=== PATIENT | female | born 1945 | race Caucasian/White ===

== ENCOUNTER 2020-05-13 13:29 | Emergency (ER) | payer MEDICARE, BC, SELFPAY ==
[2020-05-13 13:43] VITALS: BP 103/78; PULSE 79; TEMP 36.6; O2SAT 96
--- NOTE | 2020-05-13 13:54 | ED.GENADUL_ITS ---
Discharge Plan Disposition Patient Disposition: HOME Condition: Stable Discharge Details Chief Complaint: Orthopedic Clinical Impression: Left leg swelling Primary Care Provider: Sharon Shaikh ED Provider: Ashwini Artis Home Meds and New Rx's Prescriptions: Continued atorvastatin 40 mg Tablet 40 mg PO DAILY RF: 0 metoprolol tartrate 100 mg Tablet 100 mg PO DAILY RF: 0 aspirin 81 mg Tablet,Chewable 81 mg PO DAILY RF: 0 diltiazem HCl 120 mg Capsule,Extended Release 24hr 120 mg PO DAILY RF: 0 Eliquis 5 mg Tablet 5 mg PO BID RF: 0 Discharge Instructions Instructions: Leg Edema (ED) Additional Instructions: Rest, ice, and elevate the affected area as much as possible. Wear the Reid wrap to help with swelling. Follow up with your primary care doctor in 1 week as needed. Return to the emergency department with any worsening or new concerning symptoms. Discharge Data Discharge Date/Time-TO BE ENTERED AT DEPARTURE: 05/13/20 15:56 Discharge Physician: Ashwini Artis Medical Decision Making 74-year-old female with a history of aortic stenosis and aortic valve replacement on Eliquis complicated by cardiac arrest and CVA in 2018 presents for complaint of shinsplints to both anterior legs for the past 2 years and left leg swelling and tingling for the past week status post mechanical fall. Denies any significant pain in her left leg status post fall. Patient referred here by PCP for possible x-rays and ultrasound to rule out DVT. She has mild edema noted to left ankle but no calf tenderness or bony deformity or evidence of infection or trauma to bilateral lower extremities. She is neurovascular intact. Patient referred for left tib-fib and ankle x-rays which were negative. She had bilateral Doppler ultrasound which were negative. Her vitals are within normal limits. She appears nontoxic and in no acute distress. An Reid wrap was placed to her left ankle. She was advised on the importance of rest, ice, elevate and compression. Advised to follow up with the primary care doctor for re-evaluation. Usual and customary return precautions given prior to discharge. Medical Records Medical records reviewed: Yes I reviewed the patient's medical records. Imaging Data Radiologic Study: Radiologist's impression: US EXTREMITY VENOUS BI CLINICAL HISTORY: r/o dvt. TECHNIQUE: Bilateral lower extremity venous ultrasound performed using grayscale, color-flow, and spectral Doppler analysis. COMPARISON: CR XR ANKLE LT COMPLETE from 05/13/2020 FINDINGS: The bilateral common femoral, femoral and popliteal veins demonstrate normal compressibility, augmentation, and color Doppler. The posterior tibial veins are patent. IMPRESSION: Right: Negative for DVT Left: Negative for DVT XR TIB/FIB LT/ANKLE LT CLINICAL HISTORY: s/p fall, r/o acute fracture. TECHNIQUE: 2D digital imaging was performed COMPARISON: CR XR ANKLE LT COMPLETE from 05/13/2020 FINDINGS: BONES: No acute fracture is present. No bony destructive lesion is seen. Visualized portion of knee is unremarkable. The ankle mortise appears intact. No talar dome defect is seen. There is a plantar calcaneal spur. SOFT TISSUE: Soft tissue swelling is seen around the malleoli. IMPRESSION: Soft tissue swelling around the malleoli.. HPI General Mode of arrival: ambulatory . Date/Time Provider Initiated Documentation: 05/13/20 13:54 . Limitations to Documentation: no limitations . Information obtained by: patient . HPI Narrative: Patient is a 74-year-old female with a history of aortic stenosis, cardiac arrest, cva, htn w/ a h/o aortic valve replacement on eliquis who presents to the ED for evaluation of left leg pain and swelling after a fall for evaluation with possible x-rays and Doppler ultrasound. Patient states that since her aortic valve replacement she has had what she describes as gardiner splints to both of her anterior legs that are worse first thing in the morning and then improves throughout the day. She states 1 week ago she was working outside when she tripped and fell and landed on rocks on her left side. She denies any left arm or hip or knee pain. She states she has had some left leg and ankle swelling since then but denies any significant pain. She states when she plantar flexes her left foot she notes increased tingling and swelling in her left ankle. She called her PCP office today about the continued swelling and they advised to come to the ED for further evaluation. She denies any fever, chest pain, shortness of breath, abdominal pain, urinary symptoms. Related Data Home Medications Medication Instructions Recorded Confirmed Eliquis 5 mg PO BID 05/13/20 05/13/20 aspirin 81 mg PO DAILY 05/13/20 05/13/20 atorvastatin 40 mg PO DAILY 05/13/20 05/13/20 diltiazem HCl 120 mg PO DAILY 05/13/20 05/13/20 metoprolol tartrate 100 mg PO DAILY 05/13/20 05/13/20 Allergies Allergy/AdvReac Type Severity Reaction Status Date / Time Latex, Natural Rubber Allergy Unverified 05/13/20 13:47 General Stated Complaint: Orthopedic DEANNA: 3 Review of Systems All systems reviewed & are unremarkable except as noted in HPI and below Constitutional Constitutional: Reports as per HPI, Denies chills and Denies fever(s) Eyes Eyes: Denies blurry vision ENT Ears, Nose, Mouth, and Throat: Denies dizziness, Denies sore throat and Denies throat swelling Cardiovascular Cardiovascular: Denies chest pain and Denies dyspnea Respiratory Respiratory: Denies cough and Denies dyspnea Gastrointestinal Gastrointestinal: Denies abdominal pain, Denies diarrhea and Denies vomiting Genitourinary Genitourinary: Denies hematuria and Denies dysuria Musculoskeletal Musculoskeletal: Denies back pain, Reports joint swelling (L ankle), Denies numbness and Reports tingling (L leg) Integumentary/Breasts Skin/Breast: Denies lesions and Denies rash Neurologic Neurologic: Denies dizziness, Denies localized weakness, Denies numbness and Reports tingling (L leg) Allergic/Immunologic Allergic/Immunologic: Denies throat swelling [facility] Medical History (Updated 05/13/20 @ 17:52 by Ashwini Artis DO) Aortic stenosis (Chronic) Cardiac arrest (Acute) CVA (cerebral vascular accident) (Chronic) HTN (hypertension) (Chronic) Surgical History (Updated 05/13/20 @ 17:52 by Ashwini Artis DO) H/O aortic valve replacement (Acute) Pacemaker (Acute) Social History Smoking/Tobacco Use Status: Never Alcohol Intake: current Alcohol Intake frequency: a few times a month Alcohol type: wine Drug use: Never Substance use type: does not use Do you feel safe at home: Yes Do you feel safe in your relationship?: Yes Exam Const General: cooperative, healthy appearing and no acute distress HENMT Head: normal to inspection Face and sinus: normal facial exam Eyes General: appearance normal, both eyes and all related structures EOM: EOM intact bilaterally Neck Neck: normal visual inspection and No submandibular swelling Lymphatic: no lymphadenopathy noted Chest Chest: normal inspection of the chest and no tenderness Resp Effort & Inspection: normal respiratory effort and able to speak in complete sentences Auscultation: clear to auscultation bilaterally Cardio Rate: regular rate Rhythm: regular rhythm GI Inspection: normal to inspection Palpation: soft, not firm, not rigid and nontender Auscultation: normal bowel sounds Skin General skin exam: no rashes or lesions noted Neuro General: patient alert, patient awake and patient oriented x3 Cognition: normal cognition Speech: speech normal Motor: muscle tone normal throughout Sensory Exam: no sensory deficits noted Extrem Left upper extremity: normal to inspection and full ROM Other: Left lower extremity: Scattered ecchymosis noted to medial malleolus. Mild edema noted to left ankle overlying left medial > lateral malleolus. No calf tenderness. No tenderness noted to dorsal foot. No bony deformity noted. No crepitus. No pain with range of motion at hip or knee. Right lower extremity: No tenderness, ecchymosis or edema noted. Bilateral distal pulses intact. Psych Appearance: grossly normal Mental Status: mental status grossly normal Speech and Movement: speech and movement normal Affect: normal affect Course Vital Signs Vital signs: Vital Signs Temperature 97.9 F 05/13/20 13:43 Pulse 79 05/13/20 13:43 Blood Pressure 103/78 05/13/20 13:43 Pulse Oximetry 96 05/13/20 13:43 Temperature 97.9 F 05/13/20 13:43 Temperature Source Temporal Artery Scan 05/13/20 13:43 Pulse 79 05/13/20 13:43 Respiratory Effort Non-Labored 05/13/20 13:46 Blood Pressure 103/78 05/13/20 13:43 Blood Pressure Position Sitting 05/13/20 13:43 Pulse Oximetry 96 05/13/20 13:43 Oxygen Delivery Method Room Air 05/13/20 13:43 Oxygen Flow Rate 0 05/13/20 13:43 Pain Level 0 05/13/20 13:43
--- NOTE | 2020-05-13 14:00 | DI.RAD_ITS ---
EXAM: XR TIB/FIB LT CLINICAL HISTORY: s/p fall, r/o acute fracture. TECHNIQUE: 2D digital imaging was performed COMPARISON: CR XR ANKLE LT COMPLETE from 05/13/2020 FINDINGS: BONES: No acute fracture is present. No bony destructive lesion is seen. Visualized portion of knee i s unremarkable. The ankle mortise appears intact. No talar dome defect is seen. There is a plantar calcaneal spur. SOFT TISSUE: Soft tissue swelling is seen around the malleoli. IMPRESSION: Soft tissue swelling around the malleoli.. DATA REPOSITORY: RADIATION DOSE DELIVERED:
--- NOTE | 2020-05-13 14:58 | DI.US_ITS ---
EXAM: US EXTREMITY VENOUS BI CLINICAL HISTORY: r/o dvt. TECHNIQUE: Bilateral lower extremity venous ultrasound performed using grayscale, color-flow, and sp ectral Doppler analysis. COMPARISON: CR XR ANKLE LT COMPLETE from 05/13/2020 FINDINGS: The bilateral common femoral, femoral and popliteal veins demonstrate normal compressibility, augment ation, and color Doppler. The posterior tibial veins are patent. IMPRESSION: Right: Negative for DVT Left: Negative for DVT DATA REPOSITORY:
[2020-05-13 15:12] VITALS: BP 124/66; PULSE 79; RESP 15; O2SAT 98
[2020-05-13 15:53] VITALS: BP 136/69; PULSE 80; TEMP 36.7; O2SAT 97
== END 2020-05-13 15:56 | disposition home or self-care (01) ==
PROVIDERS: Emergency Provider Physician Assistant; PCP Family Medicine
DX: R60.0 Localized edema (principal); R20.2 Paresthesia of skin; W01.198A Fall on same level from slipping, tripping and stumbling with subsequent striking against other object, initial encounter; I10 Essential (primary) hypertension
CPT/HCPCS: 99284; 73590; 73610; 93970; 99285